=== PATIENT | female | born 1960 | race American Indian/Alaskan Native ===

== ENCOUNTER 2018-05-31 15:05 | Emergency (ER) | payer MEDICARE ==
[2018-05-31] MEDS ORDERED: NACL 0.9% 500 ML 500 ML IV ONE (15:21)
[2018-05-31] MEDS ORDERED: NACL 0.9% 1000 ML IV ONE (15:33)
[2018-05-31] MEDS ORDERED: VANCOMYCIN/NS 1 GM/250 ML 1 GM/250 ML BAG IV ONE (15:36)
--- NOTE | 2018-05-31 15:37 | Emergency Department Report ---
ED General Adult HPI - General Chief complaint: Fever Stated complaint: ALLERGIC REACTION Time Seen by Provider: 05/31/18 15:27 Source: patient, EMS Mode of arrival: Stretcher Limitations: No Limitations - History of Present Illness Initial comments: Patient is a 57-year-old female who presents with allergic reaction. Patient was stung by a bee on her left ankle. She states this was approximately 3 hours ago. She used her EpiPen twice. She states that the pain in her ankles are 1 out 10 nothing makes the pain better and nothing makes it worse. The pain does not radiate anywhere. She denies any shortness of breath any tongue swelling or any headache. - Related Data Previous Rx's Medication Instructions Recorded Last Taken Type Amoxicillin/K Clav Tab [Augmentin 1 tab PO Q12HR #14 tab 05/31/16 Unknown Rx 875 mg] Diclofenac Sodium 75 mg PO BID #20 tablet. 05/31/16 Unknown Rx diphenhydrAMINE [Benadryl CAP] 50 mg PO Q8HR PRN #20 capsule 05/31/18 Unknown Rx predniSONE [Deltasone] 20 mg PO QDAY #5 tab 05/31/18 Unknown Rx Allergies Allergy/AdvReac Type Severity Reaction Status Date / Time codeine Allergy Itching Verified 05/31/16 18:07 ED Review of Systems ROS: Stated complaint: ALLERGIC REACTION Other details as noted in HPI Constitutional: denies: chills, fever Eyes: denies: eye pain, eye discharge, vision change ENT: denies: ear pain, throat pain Respiratory: denies: cough, shortness of breath, wheezing Cardiovascular: denies: chest pain, palpitations Endocrine: no symptoms reported Gastrointestinal: denies: abdominal pain, nausea, diarrhea Genitourinary: denies: urgency, dysuria, discharge Musculoskeletal: denies: back pain, joint swelling, arthralgia Skin: denies: rash, lesions Neurological: denies: headache, weakness, paresthesias Psychiatric: denies: anxiety, depression Hematological/Lymphatic: denies: easy bleeding, easy bruising ED Past Medical Hx - Past Medical History Previous Medical History?: Yes Hx Hypertension: Yes - Surgical History Past Surgical History?: Yes Hx Appendectomy: Yes Additional Surgical History: hysterectomy 1991; rt rotator cuff repair 2011; gastric by pass 2010 - Social History Smoking Status: Never Smoker Substance Use Type: None - Medications Home Medications: Home Medications Medication Instructions Recorded Confirmed Last Taken Type Amoxicillin/K Clav Tab [Augmentin 1 tab PO Q12HR #14 tab 05/31/16 Unknown Rx 875 mg] Diclofenac Sodium 75 mg PO BID #20 tablet. 05/31/16 Unknown Rx diphenhydrAMINE [Benadryl CAP] 50 mg PO Q8HR PRN #20 capsule 05/31/18 Unknown Rx predniSONE [Deltasone] 20 mg PO QDAY #5 tab 05/31/18 Unknown Rx ED Physical Exam - General Limitations: No Limitations General appearance: alert, in no apparent distress - Head Head exam: Present: atraumatic, normocephalic - Eye Eye exam: Present: normal appearance - ENT ENT exam: Present: mucous membranes moist - Neck Neck exam: Present: normal inspection - Respiratory Respiratory exam: Present: normal lung sounds bilaterally. Absent: respiratory distress - Cardiovascular Cardiovascular Exam: Present: regular rate, normal rhythm. Absent: systolic murmur, diastolic murmur, rubs, gallop - GI/Abdominal GI/Abdominal exam: Present: soft, normal bowel sounds - Extremities Exam Extremities exam: Present: normal inspection - Back Exam Back exam: Present: normal inspection - Neurological Exam Neurological exam: Present: alert, oriented X3 - Psychiatric Psychiatric exam: Present: normal affect, normal mood - Skin Skin exam: Present: warm, dry, intact, normal color. Absent: rash ED Course Vital Signs 05/31/18 16:02 Temperature 98.5 F Pulse Rate 88 Respiratory 16 Rate Blood Pressure 118/52 O2 Sat by Pulse 96 Oximetry ED Medical Decision Making - Lab Data Result diagrams: 05/31/18 16:05 05/31/18 16:05 Lab Results 05/31/18 05/31/18 Range/Units 16:05 16:05 WBC 9.0 (4.5-11.0) K/mm3 RBC 4.29 (3.65-5.03) M/mm3 Hgb 12.9 (10.1-14.3) gm/dl Hct 37.5 (30.3-42.9) % MCV 87 (79-97) fl MCH 30 (28-32) pg MCHC 34 (30-34) % RDW 14.5 (13.2-15.2) % Plt Count 224 (140-440) K/mm3 Lymph % (Auto) 26.3 (13.4-35.0) % [place] % (Auto) 6.3 (0.0-7.3) % Eos % (Auto) 1.5 (0.0-4.3) % Baso % (Auto) 0.5 (0.0-1.8) % Lymph # 2.4 (1.2-5.4) K/mm3 [place] # 0.6 (0.0-0.8) K/mm3 Eos # 0.1 (0.0-0.4) K/mm3 Baso # 0.0 (0.0-0.1) K/mm3 Seg Neutrophils % 65.4 (40.0-70.0) % Seg Neutrophils # 5.9 (1.8-7.7) K/mm3 Sodium 142 (137-145) mmol/L Potassium 3.6 (3.6-5.0) mmol/L Chloride 102.1 (98-107) mmol/L Carbon Dioxide 26 (22-30) mmol/L Anion Gap 18 mmol/L BUN 14 (7-17) mg/dL Creatinine 0.8 (0.7-1.2) mg/dL Estimated GFR > 60 ml/min BUN/Creatinine Ratio 18 % Glucose 140 H (65-100) mg/dL Calcium 9.2 (8.4-10.2) mg/dL Total Bilirubin 0.30 (0.1-1.2) mg/dL AST 24 (5-40) units/L ALT 28 (7-56) units/L Alkaline Phosphatase 99 (35-129) units/L Total Protein 7.1 (6.3-8.2) g/dL Albumin 4.1 (3.9-5) g/dL Albumin/Globulin Ratio 1.4 % - Medical Decision Making Chief Medical diagnosis: Allergic reaction Differential medical diagnosis: Anaphylactoid reaction, electrolyte abnormality I will get CBC, BMP, IV Benadryl, IV Pepcid and IV Decadron Patient is better after reevaluation no increased swelling in her ankle I will send patient home. Discussed plan with patient and patient agrees with plan additional verbal discharge instructions were given. Critical care attestation.: If time is entered above; I have spent that time in minutes in the direct care of this critically ill patient, excluding procedure time. ED Disposition Clinical Impression: Bee sting Qualifiers: Encounter type: initial encounter Injury intent: accidental or unintentional Qualified Code(s): T63.441A - Toxic effect of venom of bees, accidental ( unintentional), initial encounter Allergic reaction Qualifiers: Encounter type: initial encounter Qualified Code(s): T78.40XA - Allergy, unspecified, initial encounter Disposition: TO HOME OR SELFCARE Is pt being admited?: No Does the pt Need Aspirin: No Condition: Stable Instructions: Allergies (ED) Prescriptions: diphenhydrAMINE [Benadryl CAP] 50 mg PO Q8HR PRN #20 capsule PRN Reason: Allergy Symptoms predniSONE [Deltasone] 20 mg PO QDAY #5 tab
[2018-05-31] MEDS ORDERED: REGLAN IV ONE (15:56)
[2018-05-31] MEDS ORDERED: DECADRON IV ONE (15:56)
[2018-05-31] MEDS ORDERED: BENADRYL IV ONE (15:56)
[2018-05-31] MEDS ORDERED: ZOSYN/NS 4.5GM/100ML 4.5 GM/100 ML VIAL IV SCH (16:00)
[2018-05-31 16:09] VITALS: BP 118/52
[2018-05-31 16:35] LABS: Basophils % (Auto) 0.5 % (0.0-1.8); Eosinophils # (Auto) 0.1 K/mm3 (0.0-0.4); Eosinophils % (Auto) 1.5 % (0.0-4.3); Hematocrit 37.5 % (30.3-42.9); Hemoglobin 12.9 gm/dl (10.1-14.3); Lymphocytes # (Auto) 2.4 K/mm3 (1.2-5.4); Lymphocytes % (Auto) 26.3 % (13.4-35.0); Mean Corpuscular HGB Conc 34 % (30-34); Mean Corpuscular Hemoglobin 30 pg (28-32); Mean Corpuscular Volume 87 fl (79-97); Monocytes # (Auto) 0.6 K/mm3 (0.0-0.8); Monocytes % (Auto) 6.3 % (0.0-7.3); Platelet Count 224 K/mm3 (140-440); Red Blood Count 4.29 M/mm3 (3.65-5.03); Red Cell Distribution Width 14.5 % (13.2-15.2)
[2018-05-31 17:06] LABS: Alanine Aminotransferase 28 units/L (7-56); Albumin 4.1 g/dL (3.9-5); BUN/Creatinine Ratio 18; Blood Urea Nitrogen 14 mg/dL (7-17); Calcium 9.2 mg/dL (8.4-10.2); Hemolysis Index 16
== END 2018-05-31 18:10 | disposition home or self-care (01) ==
LOC: ED 15:05
DX: T63.441A Toxic effect of venom of bees, accidental (unintentional), initial encounter (principal); I10 Essential (primary) hypertension; Z90.89 Acquired absence of other organs; Z90.710 Acquired absence of both cervix and uterus; Z88.5 Allergy status to narcotic agent; Y92.89 Other specified places as the place of occurrence of the external cause
CPT/HCPCS: 36415; 80053; 85025; 96374; 96375; 99283; J1100; J1200; J2765; J7030

== ENCOUNTER 2019-08-10 12:04 | Emergency (ER) | payer MEDICARE ==
[2019-08-10] MEDS ORDERED: HYDROcodone/ACETAMINOPHEN 5-325 MG TAB ONE (12:57)
[2019-08-10] MEDS ORDERED: HYDROcodone/ACETAMINOPHEN 5-325 MG TAB PO ONE (12:58)
--- NOTE | 2019-08-10 13:02 | XRay Report ---
RIGHT FOREARM 2 VIEWS. INDICATION / CLINICAL INFORMATION: fall, arm injury COMPARISON: None available. FINDINGS: BONES / JOINT(S): Longitudinal fractures of the distal radius and ulna are mildly comminuted. The rad ial fracture extends into the radiocarpal joint. The distal fragment is impacted, anteriorly displace d and anteriorly angulated. Widening of the scapholunate space secondary to tearing of the scapholuna te ligament. SOFT TISSUES: Diffuse soft tissue swelling. ADDITIONAL FINDINGS: None. Signer Name: Juan Muse MD Signed: 08/10/2019 12:58 PM Workstation Name: [id number]
[2019-08-10] MEDS ORDERED: ONDANSETRON 4 MG/2 ML INJ IV ONE (14:15)
[2019-08-10] MEDS ORDERED: MORPHINE 4 MG/1 ML INJ IV ONE (14:15)
--- NOTE | 2019-08-10 14:38 | Emergency Department Report ---
ED Upper Extremity Inj HPI - General Chief Complaint: Extremity Injury, Upper Stated Complaint: FALL Time Seen by Provider: 08/10/19 14:01 Source: patient, EMS Mode of arrival: Ambulatory Limitations: Physical Limitation - History of Present Illness Initial Comments: Mrs. Sharpe is a 59 yo female with hx of HTN, GERD, DM and manic depression who presents severe right wrist pain and deformity after fall on outstretched hand at home. She was wearing flip-flops which were slippery. Consequently she fell and tripped at home. 10/ pain without obvious deformity her right hand. She is right-hand dominant. Has difficulty moving her thumb and fingers. No pain in the shoulder or elbow. No neck pain. No other injury. She receives primary care at [facility] Prior to her fall she was in her normal state of health. She last ate a meal last night. She drank coffee 8 AM this morning. While in the emergency department she ate four potato chips due to nausea. She arrived per EMS. Splint was applied by clinic administrator. Complaint: Injury to:: right, wrist -: Sudden Other Extremity Injury: Wrist: Right Other Injuries: none Handedness: right Place: home Severity scale (0 -10): 10 Improves With: none Worsens With: movement of extremity Context: fall Associated Symptoms: weakness - Related Data Previous Rx's Medication Instructions Recorded Last Taken Type Amoxicillin/K Clav Tab [Augmentin 1 tab PO Q12HR #14 tab 05/31/16 Unknown Rx 875 mg] Diclofenac Sodium 75 mg PO BID #20 tablet.dr 05/31/16 Unknown Rx diphenhydrAMINE [Benadryl CAP] 50 mg PO Q8HR PRN #20 capsule 05/31/18 Unknown Rx predniSONE [Deltasone] 20 mg PO QDAY #5 tab 05/31/18 Unknown Rx Allergies Allergy/AdvReac Type Severity Reaction Status Date / Time codeine Allergy Itching Verified 05/31/16 18:07 ED Review of Systems ROS: Stated complaint: FALL Other details as noted in HPI Comment: All other systems reviewed and negative Constitutional: denies: fever, malaise Respiratory: denies: cough, shortness of breath Gastrointestinal: denies: abdominal pain, nausea, vomiting Skin: denies: rash, lesions ED Past Medical Hx - Past Medical History Previous Medical History?: Yes Hx Hypertension: Yes Hx Diabetes: Yes Hx GERD: Yes Hx Psychiatric Treatment: Yes - Surgical History Past Surgical History?: Yes Hx Cholecystectomy: Yes Hx Appendectomy: Yes Additional Surgical History: hysterectomy 1991; rt rotator cuff repair 2011; gastric by pass 2010 - Social History Smoking Status: Never Smoker Substance Use Type: Alcohol Other Social History: Retired technical administrator - Medications Home Medications: Home Medications Medication Instructions Recorded Confirmed Last Taken Type Amoxicillin/K Clav Tab [Augmentin 1 tab PO Q12HR #14 tab 05/31/16 Unknown Rx 875 mg] Diclofenac Sodium 75 mg PO BID #20 tablet.dr 05/31/16 Unknown Rx diphenhydrAMINE [Benadryl CAP] 50 mg PO Q8HR PRN #20 capsule 05/31/18 Unknown Rx predniSONE [Deltasone] 20 mg PO QDAY #5 tab 05/31/18 Unknown Rx ED Physical Exam - General Limitations: No Limitations, Physical Limitation General appearance: alert, in no apparent distress, other (pleasant appears in pain) - Head Head exam: Present: atraumatic, normocephalic - Eye Eye exam: Present: normal appearance - ENT ENT exam: Present: mucous membranes moist - Neck Neck exam: Present: normal inspection, full ROM - Respiratory Respiratory exam: Present: normal lung sounds bilaterally. Absent: respiratory distress, wheezes, rales, rhonchi - Cardiovascular Cardiovascular Exam: Present: regular rate, normal rhythm, normal heart sounds. Absent: systolic murmur, diastolic murmur, rubs, gallop - GI/Abdominal GI/Abdominal exam: Present: soft, normal bowel sounds. Absent: distended, tenderness, guarding, rebound - Extremities Exam Extremities exam: Present: other (right wrist and hand is deviated to the radial region and dorsally malpositioned there is ecchymosis at the volar aspect of the wrists intact skin able to slightly wiggle all 5 digits of the hand 2+ radial pulse intact) - Expanded Upper Extremity Exam Right Shoulder Exam: Present: normal inspection, full ROM. Absent: tenderness Upper Arm exam: Present: normal inspection, full ROM. Absent: tenderness Elbow exam: Present: normal inspection, full ROM. Absent: tenderness Forearm Wrist exam: Present: tenderness, swelling, ecchymosis, deformity Hand Wrist exam: Present: normal inspection - Back Exam Back exam: Present: normal inspection - Neurological Exam Neurological exam: Present: alert, oriented X3 - Psychiatric Psychiatric exam: Present: normal affect, normal mood - Skin Skin exam: Present: warm, dry, intact, normal color. Absent: rash ED Course Vital Signs 08/10/19 08/10/19 08/10/19 12:19 13:00 14:29 Temperature 97.8 F Pulse Rate 68 Respiratory 17 20 22 Rate Blood Pressure 144/60 O2 Sat by Pulse 96 Oximetry ED Medical Decision Making - Radiology Data Radiology results: report reviewed Right forearm 2 views according to radiologist longitudinal fractures of the distal radius and ulnar mildly comminuted, the radial fracture extends into the radiocarpal joint, the distal fragment is impacted anterior displacement and anteriorly angulated, widening of schapholunate space due secondary to tearing of the scapholunate ligament - Medical Decision Making Both bone distal forearm fracture closed comminuted severely angulated displaced due to severe pain and severity of injury will need urgent orthopedic surgery consult as well as hospital admission for stabilization and pain control. Under my supervision, our medical staff member applied splint in neutral position comfortable physician for patient to the right upper extremity/forearm. After splint application under my supervision the patient is neurovascularly intact with neutral alignment. I spoke with [place] physician Dr. Luna who will arrange for phone consultation with hand surgeon Dr. Herron. I spoke with Dr. Herron. I discussed my findings. Patient will be transferred to [facility] [place] for definitive care. Critical care attestation.: If time is entered above; I have spent that time in minutes in the direct care of this critically ill patient, excluding procedure time. ED Disposition Clinical Impression: Forearm fractures, both bones, closed Disposition: [id number] ANOTHER TYPE HLTHCARE Is pt being admited?: No Does the pt Need Aspirin: No Condition: Stable
[2019-08-10] MEDS ORDERED: HYDROmorphone 1 MG/1 ML INJ IV ONE (15:22)
[2019-08-10 15:57] VITALS: BP 132/56
== END 2019-08-10 16:18 | disposition other institution (70) ==
LOC: ED 12:04
DX: S52.501A Unspecified fracture of the lower end of right radius, initial encounter for closed fracture (principal); S52.601A Unspecified fracture of lower end of right ulna, initial encounter for closed fracture; I10 Essential (primary) hypertension; E11.9 Type 2 diabetes mellitus without complications; K21.9 Gastro-esophageal reflux disease without esophagitis; Z90.49 Acquired absence of other specified parts of digestive tract; Z90.89 Acquired absence of other organs; Z90.710 Acquired absence of both cervix and uterus; Z79.899 Other long term (current) drug therapy; Z88.5 Allergy status to narcotic agent; W01.0XXA Fall on same level from slipping, tripping and stumbling without subsequent striking against object, initial encounter; Y93.89 Activity, other specified; Y92.098 Other place in other non-institutional residence as the place of occurrence of the external cause; Y99.8 Other external cause status
CPT/HCPCS: 29125; 73090; 96374; 96375; 99285; J1170; J2270; J2405